=== PATIENT | male | born 1955 | race Caucasian/White ===

== ENCOUNTER 2024-04-19 09:26 | Day surgery (SDC) | payer MEDICARE, OTHER, SELFPAY ==
[2024-04-19 10:03] VITALS: BP 125/75; PULSE 76; RESP 14; TEMP 36.4; O2SAT 99
--- NOTE | 2024-04-19 10:03 | P.HP_ITS ---
History of Present Illness History of Present Illness Date Patient Seen: 04/19/24 Time Patient Seen: 10:04 Chief complaint: SDC Narrative: 68-year-old white male with a previous colonoscopy 5 years ago in which polyps were found. Otherwise no changes in overall health. Presents for surveillance colonoscopy. [facility] Medical History (Updated 04/19/24 @ 10:05 by Gómez Ho MD) Personal history of colonic polyps Colon cancer screening BPH w urinary obs/LUTS Elevated PSA Skin cancer Social History marital status: Smoking Status: Former smoker alcohol intake: never Type(s) of exercise: walking frequency: 3-4 times per week Meds Home Medications and Allergies Home Medications Medication Instructions Recorded Confirmed Type acetaminophen 500 mg tablet 1,000 mg PO HS ##0 12/08/16 04/19/24 History (Tylenol Extra Strength) tamsulosin 0.4 mg capsule 0.4 mg PO ONCE PM #90 caps 10/27/23 04/19/24 Rx atorvastatin 40 mg tablet 40 mg PO DAILY 04/19/24 04/19/24 History terbinafine HCl 250 mg tablet 250 mg PO DAILY 04/19/24 04/19/24 History Allergies Allergy/AdvReac Type Severity Reaction Status Date / Time No Known Drug Allergies Allergy Verified 04/19/24 09:41 Review of Systems Review of Systems ROS: Yes All systems reviewed with the patient and are negative except as otherwise documented Constitutional Constitutional: Reports system reviewed and no additional complaints, except as documented Eyes Eyes: Reports system reviewed and no additional complaints, except as documented ENT Ears, Nose, Mouth, and Throat: Yes system reviewed and no additional complaints, except as documented Cardiovascular Cardiovascular: Reports system reviewed and no additional complaints, except as documented Respiratory Respiratory: Reports system reviewed and no additional complaints, except as documented Gastrointestinal Gastrointestinal: Reports system reviewed and no additional complaints, except as documented Genitourinary Genitourinary: Reports system reviewed and no additional complaints, except as documented Musculoskeletal Musculoskeletal: Reports system reviewed and no additional complaints, except as documented Integumentary/Breasts Skin/Breast: Reports system reviewed and no additional complaints, except as documented Neurologic Neurologic: Reports system reviewed and no additional complaints, except as documented Psychiatric Psychiatric: Reports system reviewed and no additional complaints, except as documented Endocrine Endocrine: Reports system reviewed and no additional complaints, except as documented Hematologic/Lymphatic Hematologic/Lymphatic: Reports system reviewed and no additional complaints, except as documented Allergic/Immunologic Allergic/Immunologic: Reports system reviewed and no additional complaints, except as documented Exam Vital Signs (past 8 hours): - 04/19/24 10:03 Temperature 97.5 F L Pulse Rate 76 Respiratory Rate 14 Blood Pressure 125/75 Pulse Oximetry 99 Oxygen Delivery Method Room Air Oxygen Delivery Method Room Air Narrative Exam Narrative: Gen: NAD, sitting comfortably in bed, appears well HEENT: Sclera are anicteric, head is normocephalic and atraumatic, trachea is midline. CV: RRR, no JVD Resp: clear to auscultation bilaterally, equal chest wall movement bilaterally Abd: soft, nontender, normoactive bowel sounds Ext: no edema, full range of motion Neuro: Cranial nerves II-XII grossly intact, no focal deficits Skin: No erythema or ecchymosis Assessment & Plan Assessment and plan (1) Colon cancer screening: Status: Acute (2) Personal history of colonic polyps: Status: Acute Assessment & Plan narrative: Patient presents for initial screening colonoscopy Risks, benefits, alternatives to colonoscopy explained, including but not limited to bowel perforation or other serious complication requiring surgery at less than 1 in 5000 colonoscopies, abdominal pain, cramping or bleeding and less than 1% of colonoscopies, and the chances that we find a diagnosis that would require further intervention of about 2%. Patient agrees to proceed. Time-Based Coding :: [TOTAL MINUTES] spent with patient and on the chart (including review of chart, obtaining history, exam, reviewing outside data, placing orders, documenting exam and treatment plan, and counseling patient) on [DATE].
[2024-04-19 10:29] VITALS: BP 101/58; PULSE 76; RESP 16; TEMP 36.2; O2SAT 97
--- NOTE | 2024-04-19 10:31 | P.OP.COLON_ITS ---
Operative Date/Time/Diagnoses Date of procedure: 04/19/24 Time of procedure: 10:31 Pre-op diagnosis: personal history of polyps Post-op diagnosis: same (diverticulosis of the sigmoid, non-bleeding, non- prolapsed internal hemorrhoids) Procedure & Clinicians Study performed: Screening colonoscopy Same procedure as scheduled: Yes Indications: Personal history of polyps Surgeon: Gómez Ho Procedure Notes SCOAP/Timeout: Performed Procedure in detail: Time-out was performed. Mac was induced. Patient was placed in left lateral decubitus position. The perineum was inspected without any gross abnormality. Lubricated pediatric colonoscope was inserted and advanced to the cecum. The terminal ileum was intubated. The colonoscope was withdrawn slowly inspecting the circumference of the colon. Very small polyps may have been missed, prep quality was adequate. Retroflexed view of the rectum showed small, non prolapsed nonbleeding internal hemorrhoids. The scope was withdrawn the patient was taken to PACU in good condition. Scope withdrawal time: 6 Sedation minutes: 14 Findings: divertiulosis and internal hemorrhoids Impression: No polyps, diverticulosis and internal hemorrhoids Post-procedure Recommendations: Colonoscopy in 5 years Follow up: as needed Disposition: PACU
[2024-04-19 10:34] VITALS: BP 96/61; PULSE 67; RESP 12; O2SAT 96
[2024-04-19 10:39] VITALS: BP 106/59; PULSE 75; RESP 14; TEMP 36.6; O2SAT 97
[2024-04-19 10:44] VITALS: BP 108/65; PULSE 78; RESP 14; TEMP 36.3; O2SAT 98
[2024-04-19 11:18] VITALS: BP 110/66; PULSE 74; RESP 16; O2SAT 98
== END 2024-04-19 11:21 | disposition home or self-care (01) ==
PROVIDERS: PCP Internal Medicine; Referring Provider Surgery; Visit Provider Surgery
PROC: 0DJD8ZZ Inspection of Lower Intestinal Tract, Via Natural or Artificial Opening Endoscopic (ICD-10-PCS; CPT 45378; principal; 2024-04-19 10:45)
DX: Z12.11 Encounter for screening for malignant neoplasm of colon (principal); Z86.0100 Personal history of colon polyps, unspecified; K57.30 Diverticulosis of large intestine without perforation or abscess without bleeding; K64.8 Other hemorrhoids
CPT/HCPCS: G0105; J2704